=== PATIENT | male | born 1975 | race Caucasian/White ===

== ENCOUNTER 2024-04-21 12:59 | Outpatient (CLI) | payer SELFPAY ==
--- NOTE | 2024-04-21 13:04 | CT_ITS ---
WS: [id number] CT CALCIUM SCORE REASON FOR VISIT: EXERCISE DYSPNEA; Coronary artery disease risk assessment COMPARISON: None TECHNIQUE: Noncontrast coronary CT in combination with quantitative analysis performed on a separate workstation were used to determine CACS (Agatston score) TOTAL EXAM DOSE: 47.14 mGy.cm ECG GATING: Prospective SCAN RANGE: Pulmonary artery bifurcation to Inferior aspect of heart COMPLICATIONS: None FINDINGS: Technical Quality/Examination Quality: Good Limitaiton: None OVERALL SCORES Total calcium score: 68 Total volume score: 86 mm3 Percentile: 75th-90th% ARTERY SCORES Left main coronary artery: 44 Left anterior descending artery: 1 Left circumflex artery: 13 Right coronary artery: 10 OTHER FINDINGS: Tiny esophageal hiatal hernia. Mediastinum: Normal. Thoracic aorta: Normal. Lungs: Normal. Upper Abdomen: Normal. MINIMAL: 1-10 MILD: 11-100 MODERATE: 101-400 SEVERE:>400 CT/CT heart w calcium score 43651 IMPRESSION: Total calcium score of 68 is between the 75th and 90th percentile f or males between the ages of 45 and 49 GRADING OF CORONARY ARTERY DISEASE (BASED ON TOTAL CALCIUM SCORE) NO EVIDENCE OF CAD: 0 calcium score
== END 2024-04-21 13:00 | disposition home or self-care (01) ==
LOC: RAD 13:03
PROVIDERS: PCP Family Medicine; Visit Provider Family Medicine
DX: R06.09 Other forms of dyspnea (principal); Z82.49 Family history of ischemic heart disease and other diseases of the circulatory system; K44.9 Diaphragmatic hernia without obstruction or gangrene
CPT/HCPCS: 75571